=== PATIENT | male | born 1960 | race Caucasian/White ===

== ENCOUNTER → 2020-11-17 | Outpatient (CLI) | payer OTHER ==
[~2020-11-17] MED LIST: ATOR10TA PO; GABA-826 PO; LISI-170 PO; OXYC10TA6 PO; PANT40TA6 PO; PROP10TA16 PO; ZOLP5TAB6 PO
[2020-11-17 15:33] LABS: ALBUMIN 3.8 g/dL (3.4-5.0); ANION GAP 3 mmol/L (5-15); CALCIUM 9.1 mg/dL (8.5-10.1); CHLORIDE 108 mmol/L (98-107)
[2020-11-17 15:38] LABS: ALANINE AMINOTRANSFERASE 83 U/L (12-78); ALKALINE PHOSPHATASE 93 U/L (45-117); BILIRUBIN,TOTAL 0.9 mg/dL (0.2-1.0); CREATININE 1.11 mg/dL (0.7-1.3); TOTAL PROTEIN 7.2 g/dL (6.4-8.2)
== END | disposition home or self-care (01) ==
LOC: MERGE 13:30 → STAR 13:32
PROVIDERS: ATTEND Surgery
DX: Z01.818 Encounter for other preprocedural examination (principal); K40.90 Unilateral inguinal hernia, without obstruction or gangrene, not specified as recurrent; R00.1 Bradycardia, unspecified
CPT/HCPCS: 36415; 80053; 93005

== ENCOUNTER 2020-12-02 13:24 | Day surgery (SDC) | payer OTHER ==
[~2020-12-02] VITALS: Ht 185.4 cm; Wt 83.9 kg
[2020-12-02] MEDS ORDERED: BUPIVACAINE/PF 0.25% ONE (13:53)
[2020-12-02] MEDS ORDERED: EPINEPHRINE 1 MG/ML, 1ML ONE (13:53)
[2020-12-02] MEDS ORDERED: MIDAZOLAM 1 MG/ML, 2ML ONE (13:58)
[2020-12-02] MEDS ORDERED: FENTANYL PF 250 MCG/5ML ONE (13:58)
[2020-12-02] MEDS ORDERED: NEOSTIGMINE 1 MG/ML, 10ML ONE (13:59)
[2020-12-02] MEDS ORDERED: GLYCOPYRROLATE 0.2MG/1ML, 5ML ONE (13:59)
[2020-12-02] MEDS ORDERED: CEFAZOLIN 1,000 MG ONE (13:59)
[2020-12-02] MEDS ORDERED: ROCURONIUM 10MG/ML,5ML ONE (13:59)
[2020-12-02] MEDS ORDERED: PROPOFOL 10 MG/ML, 20ML ONE (13:59)
[2020-12-02 14:05] VITALS: BP 144/93
[2020-12-02] MEDS ORDERED: MEPERIDINE/PF 25MG/0.5ML IVPush PRN (14:30)
[2020-12-02] MEDS ORDERED: LACTATED RINGERS 1,000 ML IV SCH (14:30)
[2020-12-02] MEDS ORDERED: OXYcodone 5 MG/5 ML ORAL.SOL UDC PO PRN (14:30)
[2020-12-02] MEDS ORDERED: ONDANSETRON 2MG/ML, 2ML IVPush PRN (14:30)
[2020-12-02] MEDS ORDERED: LABETALOL 5MG/ML, 20ML IV PRN (14:30)
[2020-12-02] MEDS ORDERED: hydrALAzine 20 MG/ML, 1ML IV PRN (14:30)
[2020-12-02] MEDS ORDERED: CHLORHEXIDINE 15 ML UDC PO ONE (14:30)
[2020-12-02] MEDS ORDERED: HYDROmorphone 1 MG/ML, 1ML INJ IVPush PRN (14:30)
[2020-12-02] MEDS ORDERED: morphine SULFATE 10 MG/ML, 1ML IVPush PRN (14:30)
[2020-12-02] MEDS ORDERED: ACETAMINOPHEN 325 MG TABLET PO PRN (14:30)
[2020-12-02] MEDS ORDERED: FENTANYL PF 100 MCG/2ML IV PRN (14:30)
[2020-12-02] MEDS ORDERED: BUPIVACAINE/PF-EPI 0.25% 1:200K INFIL ONE (14:49)
[2020-12-02] MEDS ORDERED: FENTANYL PF 100 MCG/2ML ONE (15:14)
[2020-12-02] MEDS ORDERED: ACET-1600 PO (15:40)
[2020-12-02] MEDS ORDERED: OXYC5TAB2 PO (15:40)
[2020-12-02] MEDS ORDERED: IBUP-1223 PO (15:40)
[2020-12-02] MEDS ORDERED: METHOCARBAMOL 1000MG/10 ML IV SCH (16:00)
[2020-12-02] MEDS ORDERED: METHOCARBAMOL 1,000 MG in DEXTROSE 5% 100 ML IV ONE (16:00)
[2020-12-02] MEDS ORDERED: GLYCOPYRROLATE 0.4 MG/2 ML, 2ML ONE (16:22)
[2020-12-02] MEDS ORDERED: GLYCOPYRROLATE 0.2MG/1ML, 5ML IVPush ONE (16:30)
== END 2020-12-02 17:56 | disposition home or self-care (01) ==
LOC: OR 13:24
PROVIDERS: ATTEND Surgery
DX: K40.90 Unilateral inguinal hernia, without obstruction or gangrene, not specified as recurrent (principal); I10 Essential (primary) hypertension; E78.5 Hyperlipidemia, unspecified; K21.9 Gastro-esophageal reflux disease without esophagitis; G47.00 Insomnia, unspecified; Z79.891 Long term (current) use of opiate analgesic; Z79.899 Other long term (current) drug therapy; Z98.890 Other specified postprocedural states; Z80.3 Family history of malignant neoplasm of breast
CPT/HCPCS: 49650; C1781; J0171; J0690; J2250; J2704; J2710; J3010; J7120; S2900